=== PATIENT | female | born 1990 | race Caucasian/White ===

== ENCOUNTER 2017-05-22 10:41 | Emergency (ER) | END 2017-05-22 12:05 | disposition home or self-care (01) ==

== ENCOUNTER 2018-05-05 13:34 | Emergency (ER) | payer OTHER ==
[~2018-05-05] VITALS: Ht 167.6 cm; Wt 74.0 kg
[~2018-05-05 13:34] MED LIST: BENZ-6 PO; GUAI-637 PO; NAPR-688 PO; NAPR-985 PO
[2018-05-05 14:50] VITALS: BP 109/62; PULSE 101; RESP 20; Ht 167.6 cm; Wt 74.0 kg
[2018-05-05] MEDS ORDERED: KETOROLAC 30 MG INJ IM STA (15:28)
[2018-05-05] MEDS ORDERED: ONDANSETRON (ODT) 4 MG TAB ODT STA (15:28)
[2018-05-05] MEDS ORDERED: ONDA4TAB14 PO (16:10)
[2018-05-05] MEDS ORDERED: IBUP-1542 PO (16:10)
--- NOTE | 2018-05-18 13:10 | ERD ---
ER Documentation Chief Complaint Chief Complaint seen 05/05/2018 HEADACHE X 3 DAYS, VOMITING X LAST NOC HPI 27-year-old female presents for headache times 3 days. The headache is noted to be diffuse, rated 10 out of 10, intermittent. Patient has had multiple episodes of vomiting. She took Tylenol at home without relief. No other medications tried. She does have a history of headaches. States that the current headache is similar to the one she had in the past. ROS All systems reviewed and are negative except as per history of present illness. Medications Home Meds Active Scripts Ondansetron (Ondansetron Odt) 4 Mg Tab.rapdis, 4 MG PO Q6H PRN for NAUSEA AND/OR VOMITING, #15 TAB Prov:SHAQUILLE WISEMAN DO 05/05/18 Ibuprofen* (Motrin*) 600 Mg Tab, 600 MG PO Q6H PRN for PAIN AND OR ELEVATED TEMP, #30 TAB Prov:SHAQUILLE WISEMAN DO 05/05/18 Naproxen* (Naprosyn*) 500 Mg Tablet, 500 MG PO BID PRN for PAIN AND/OR INFLAMMATION, #30 TAB Prov:JOSSE JASSO PA-C 05/22/17 Guaifenesin* (Robitussin*) 100 Mg/5 Ml Syrup, 100 MG PO Q4H PRN for COUGH, #4 OZ Prov:JOSSE JASSO PA-C 05/22/17 Benzonatate* (Tessalon Perle*) 100 Mg Capsule, 100 MG PO Q8H PRN for COUGH, #30 CAP Prov:JOSSE JASSO PA-C 05/22/17 Naproxen* (Naproxen*) 500 Mg Tablet, 500 MG PO BID PRN for PAIN for 7 Days, TAB Prov:JONAH MOCK 01/12/16 Allergies Allergies: Coded Allergies: Penicillins (Verified Allergy, Unknown, itching, 05/22/17) amoxicillin (Verified Allergy, Unknown, itching, 05/22/17) PMhx/Soc Medical and Surgical Hx: pt denies Medical Hx, pt denies Surgical Hx History of Surgery: No Anesthesia Reaction: No Hx Neurological Disorder: No Hx Respiratory Disorders: No Hx Cardiac Disorders: No Hx Psychiatric Problems: No Hx Miscellaneous Medical Probl: No Hx Alcohol Use: No Hx Substance Use: No Hx Tobacco Use: No Smoking Status: Never smoker Physical Exam Vitals Temperature 99.9, pulse 101, respiration 20, blood pressure 109/62, O2 saturation 99% on room air Physical Exam Const: No acute distress Head: Atraumatic, no temporal area tenderness to palpation Eyes: Normal Conjunctiva, pupils equal, round, reactive to light bilaterally ENT: Normal External Ears, bilateral tympanic membrane intact without erythema or bulging noted, Nose and Mouth. No tonsillar swelling or exudate noted Neck: Full range of motion. No meningismus, no bruits noted Resp: Clear to auscultation bilaterally Cardio: Regular rate and rhythm, no murmurs, bilateral radial and dorsalis pedis pulses intact Skin: No petechiae or rashes Ext: No cyanosis, or edema, 5 out of 5 muscular bilateral upper and lower extremities Neur: Awake and alert, bilateral upper and lower extremity sensation intact Psych: Normal Mood and Affect Results 24 hrs Laboratory Tests Test 05/05/18 15:44 POC Beta HCG, Qualitative NEGATIVE Current Medications Medications Dose Sig/Ashli Start Time Status Last (Trade) Ordered Route PRN Stop Time Admin Dose Reason Admin Ketorolac 30 mg ONCE STAT 05/05/18 DC 05/05/18 Tromethamine IM 15:28 15:50 (Toradol) 05/05/18 15:29 Ondansetron 4 mg ONCE STAT 05/05/18 DC 05/05/18 HCl (Zofran ODT 15:28 15:49 Odt) 05/05/18 15:29 Procedures/MDM Medical Decision Making: Differential diagnosis includes but not limited to primary headache, subarachnoid hemorrhage, meningitis, temporal arteritis, glaucoma, hypertension, cerebral ischemia, carotid or vertebral arterial dissection, brain tumor. Patient appeared well on physical examination, nontoxic appearing. No history of fever. There is low suspicion for meningitis. Given patient's age and no temporal area tenderness to palpation, low suspicion for temporal arteritis. Patient has no vision changes and pupils are reactive bilaterally, low suspicion for glaucoma. There is also no focal neurologic deficits to suggest a brain tumor. Patient has normal sensation and muscle strength, low suspicion for cerebral ischemia. Given headache is similar to prior headaches, patient possibly has a primary headache. In the ER patient given Toradol and Zofran Symptoms improved with treatment. Patient given prescription for Zofran and Motrin Patient advised to follow up with PCP in 1-2 days. Patient advised to return to ED for new or worsening symptoms. Patient stable on discharge from the ED. Disclaimer: Inadvertent spelling and grammatical errors are likely due to EHR/dictation software use and do not reflect on the overall quality of patient care. Also, please note that the electronic time recorded on this note does not necessarily reflect the actual time of the patient encounter. Departure Diagnosis: Primary Impression: Headache Condition: Fair Patient Instructions: Self-Care for Headaches Referrals: [facility] YOU HAVE RECEIVED A MEDICAL SCREENING EXAM AND THE RESULTS INDICATE THAT YOU DO NOT HAVE A CONDITION THAT REQUIRES URGENT TREATMENT IN THE EMERGENCY DEPARTMENT. FURTHER EVALUATION AND TREATMENT OF YOUR CONDITION CAN WAIT UNTIL YOU ARE SEEN IN YOUR DOCTORS OFFICE WITHIN THE NEXT 1-2 DAYS. IT IS YOUR RESPONSIBILITY TO MAKE AN APPOINTMENT FOR FOLOW-UP CARE. IF YOU HAVE A PRIMARY DOCTOR --you should call your primary doctor and schedule an appointment IF YOU DO NOT HAVE A PRIMARY DOCTOR YOU CAN CALL OUR PHYSICIAN REFERRAL HOTLINE AT IF YOU CAN NOT AFFORD TO SEE A PHYSICIAN YOU CAN CHOSE FROM THE FOLLOWING [facility] CL[facility] [address] [facility] [address] [facility] [facility] [address] [facility] [address] [facility] [address] [facility] [facility]. [address] Additional Instructions: Call your primary care doctor TOMORROW for an appointment during the next 1-2 days.See the doctor sooner or return here if your condition worsens before your appointment time. SHAQUILLE WISEMAN DO May 18, 2018 13:10
== END 2018-05-05 16:39 | disposition home or self-care (01) ==
LOC: FTE 13:34
DX: R51 Headache (principal)
CPT/HCPCS: 81025; J1885; Z7610; 96372